=== PATIENT | female | born 2005 | race Caucasian/White ===

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

== ENCOUNTER 2024-05-09 08:34 | Emergency (ER) | payer OTHER, MEDICAID ==
[~2024-05-09] VITALS: Ht 160 cm; Wt 98.9 kg
[2024-05-09 12:39] LABS: URINE HCG NEGATIVE (NEG)
[2024-05-09] MEDS: LEVONORGESTREL 1.5MG tablet 1.5 MG TABLET PO ONE (13:20)
[2024-05-09] MEDS: CefTRIAXone 500MG IM Kit w/LIDOcaine (for pt below or = to 150kg) IM ONE (13:20)
[2024-05-09] MEDS: azithromycin 250mg tablet PO ONE (13:21)
[2024-05-09] MEDS: TINIDAZOLE 500 MG TABLET PO ONE (13:21)
[2024-05-09] MEDS ORDERED: IBUP-1984 PO (13:55)
[2024-05-09 14:18] VITALS: BP 117/82; PULSE 100; RESP 15; TEMP 98.7; O2SAT 99
== END 2024-05-09 14:22 | disposition home or self-care (01) ==
LOC: ER 08:34 → EEVIPCON 08:34 → ER 14:22
DX: T74.21XA Adult sexual abuse, confirmed, initial encounter (principal); F32.A Depression, unspecified; F12.90 Cannabis use, unspecified, uncomplicated; Y92.89 Other specified places as the place of occurrence of the external cause
CPT/HCPCS: 36415; 81025; 87491; 87591; 96372; 99284; J0696